=== PATIENT | female | born 1940 | race Caucasian/White ===

== ENCOUNTER 2017-12-29 22:20 | Observation (INO) ==
[2017-12-29] MEDS ORDERED: DIPH/TET/ACEL PERT BOOSTER VACCINE 0.5 ML VIAL IM ONE (22:45)
[2017-12-30] MEDS ORDERED: KETOROLAC 30 MG/1 ML VIAL IV STA (00:27)
[2017-12-30] MEDS ORDERED: ONDANSETRON 4 MG/2 ML VIAL IV PRN ×2 (00:28→10:57)
[2017-12-30] MEDS ORDERED: IBUPROFEN 400 MG TABLET PO PRN (00:28)
[2017-12-30] MEDS ORDERED: ACETAMINOPHEN 325 MG TABLET PO PRN (00:28)
[2017-12-30] MEDS ORDERED: PANTOPRAZOLE 40 MG TABLET PO SCH ×2 (07:06→07:30)
[2017-12-30 07:58] LABS: Basophils % 0.3 % (0.0-0.8); Eosinophils % 0.4 % (0.00-10.9); Hematocrit 35.4 VOL% (35.7-47.0); Hemoglobin 12.8 GM/DL (12.0-16.0); Immature Granulocytes % 0.7 %; Immature Granulocytes Absolute 0.08 #; Lymphocytes # 1.8 10*3/uL (1.4-4.0); Mean Corpuscular HGB Conc 36.2 GM/DL (32-36); Mean Corpuscular Hemoglobin 30 PG (27-34); Mean Corpuscular Volume 82.5 FL (87-102); Monocytes % 8.8 % (1.7-12.7); Neutrophils # 8.4 10*3/uL (1.4-7.4); Neutrophils % 73.8 % (38.7-73.9); Platelet Count 327 T/CUMM (130-400); Red Blood Count 4.29 MC/CUMM (3.8-5.5); Red Cell Distribution Width 12.8 % (9.3-17.3); White Blood Count 11.4 T/CUMM (4-12)
[2017-12-30 08:24] LABS: Calcium 8.7 MG/DL (8.5-10.1); Osmolality,Calculated 262.7 MOS/KG (273-304); Potassium 3.4 MMOL/L (3.5-5.1)
[2017-12-30] MEDS ORDERED: PROMETHAZINE 25 MG/1 ML VIAL IM PRN (10:56)
[2017-12-30] MEDS ORDERED: MAGNESIUM SULF RIDER 4 GM in PREMIX 1 EACH IV PRN (13:05)
[2017-12-30] MEDS ORDERED: MAGNESIUM SULF RIDER 2 GM in PREMIX 1 EACH IV PRN (13:05)
[2017-12-30] MEDS: POTASSIUM CHLORIDE RIDER 10 MEQ in PREMIX 1 EACH IV PRN ×3 (19:24→23:15)
[2017-12-31 07:25] LABS: Calcium 7.9 MG/DL (8.5-10.1); Osmolality,Calculated 265.2 MOS/KG (273-304); Potassium 3.4 MMOL/L (3.5-5.1)
[2017-12-31] MEDS ORDERED: PANTOPRAZOLE 40 MG TABLET PO SCH (07:30)
[2017-12-31] MEDS ORDERED: POTASSIUM CHLORIDE 20 MEQ TABLET PO ONE (09:34)
[2017-12-31 12:43] VITALS: BP 164/87
== END 2017-12-31 15:50 | disposition home or self-care (01) ==
LOC: EDBD → EDUNIT# → N.EDINP 22:20 → N.ED 22:20 → N.3E 12-30 01:13
PROVIDERS: ADMIT Surgery; ATTEND Surgery

== ENCOUNTER 2021-01-14 01:54 | Inpatient (IN) ==
[2021-01-14] MEDS ORDERED: ONDANSETRON 4 MG/2 ML VIAL IV STA (02:34)
[2021-01-14] MEDS ORDERED: SODIUM CHLORIDE 0.9% 1,000 ML IV STA (02:34)
[2021-01-14 02:43] LABS: Basophils # 0.1 10*3/uL (0.0-0.2); Basophils % 0.4 % (0.0-0.8); Eosinophils % 0.1 % (0.00-10.9); Hematocrit 35.4 VOL% (35.7-47.0); Hemoglobin 11.6 GM/DL (12.0-16.0); Immature Granulocytes % 0.5 %; Immature Granulocytes Absolute 0.07 #; Lymphocytes # 0.6 10*3/uL (1.4-4.0); Lymphocytes % 4.6 % (21.3-54.2); Mean Corpuscular HGB Conc 32.8 GM/DL (32-36); Mean Corpuscular Volume 88.9 FL (87-102); Monocytes % 10.5 % (1.7-12.7); Neutrophils % 83.9 % (38.7-73.9); Platelet Count 248 T/CUMM (130-400); Red Blood Count 3.98 MC/CUMM (3.8-5.5); Red Cell Distribution Width 13.8 % (9.3-17.3); White Blood Count 13.5 T/CUMM (4-12)
[2021-01-14 03:00] LABS: Albumin 2.7 G/DL (3.4-5.0); Bilirubin,Total 0.9 MG/DL (0.2-1.0); Calcium 8.1 MG/DL (8.5-10.1); Osmolality,Calculated 262.7 MOS/KG (273-304); Potassium 3.2 MMOL/L (3.5-5.1); Total Protein 6.8 G/DL (6.4-8.2)
[2021-01-14 03:15] LABS: Lymphocytes 5 % (20-55); Segmented Neutrophils 86 % (50-85); Total Cells Counted 100
[2021-01-14 03:18] LABS: Platelet Estimate Normal
[2021-01-14 04:24] LABS: Bacteria,Urine Moderate /HPF (Few); Bilirubin,Urine Negative (Negative); Blood, Urine Moderate mg/dL (Negative); Glucose,Urine (UA) Negative (Negative); Ketones,Urine 20 mg/dL (Negative); Mucus,Urine Occasional /LPF (Occasional); Nitrite,Urine Positive (Negative); Protein,Urine Negative; RBC,Urine 7 /HPF (0-4); Urine Appearance Slightly Hazy (Clear); Urine Color Amber (Yellow); Urine Specific Gravity 1.016 (1.001-1.035)
[2021-01-14] MEDS ORDERED: cefTRIAXone 1,000 MG in SODIUM CHLORIDE 0.9% 100 ML IV STA (04:31)
[2021-01-14] MEDS ORDERED: METOPROLOL TARTRATE 5 MG/5 ML VIAL IV STA (04:34)
[2021-01-14] MEDS ORDERED: ENOXAPARIN 30 MG/0.3 ML SYRINGE SUBCUT STA (04:36)
[2021-01-14] MEDS ORDERED: ENOXAPARIN 100 MG/ML SYRINGE SUBCUT ONE (04:43)
[2021-01-14] MEDS ORDERED: hydrALAZINE 20 MG/1 ML VIAL IV PRN (05:27)
[2021-01-14] MEDS ORDERED: DEXTROSE 50% 25 GM/50 ML VIAL IV PRN (05:27)
[2021-01-14] MEDS ORDERED: GLUCAGON 1 MG VIAL IM PRN (05:27)
[2021-01-14] MEDS ORDERED: NICOTINE 21 MG/24 HR PATCH TRANSDERM PRN (05:27)
[2021-01-14] MEDS ORDERED: ONDANSETRON 4 MG/2 ML VIAL IV PRN (05:27)
[2021-01-14] MEDS ORDERED: guaiFENesin/DM ER 600-30 MG TABLET PO PRN (05:27)
[2021-01-14] MEDS ORDERED: diphenhydrAMINE CAP 25 MG CAPSULE PO PRN (05:27)
[2021-01-14] MEDS ORDERED: FAMOTIDINE 20 MG/2 ML VIAL IV SCH ×2 (07:00→21:00)
[2021-01-14] MEDS: ALBUTEROL/IPRATROPIUM 3 ML NEB RESP TX SCH ×3 (07:58→18:54)
[2021-01-14] MEDS: INSULIN REGULAR 100 UNIT/ML SUBCUT SCH ×4 (08:32→21:13)
[2021-01-14] MEDS: APIXABAN 5 MG TABLET PO SCH ×2 (08:44→21:13)
[2021-01-14] MEDS: AMIODARONE 200 MG TABLET PO SCH (08:44)
[2021-01-14] MEDS: FUROSEMIDE 40 MG TABLET PO SCH ×2 (08:44→21:13)
[2021-01-14] MEDS: POTASSIUM CHLORIDE 10 MEQ TABLET PO SCH ×2 (08:44→21:13)
[2021-01-14] MEDS: LEVOTHYROXINE 112 MCG TABLET PO SCH (08:44)
[2021-01-14] MEDS: PANTOPRAZOLE 40 MG VIAL IV SCH (08:45)
[2021-01-14] MEDS ORDERED: LOSARTAN 50 MG TABLET PO SCH (09:00)
[2021-01-14] MEDS ORDERED: POTASSIUM CHLORIDE 20 MEQ TABLET PO PRN (10:30)
[2021-01-14] MEDS ORDERED: POLYETHYLENE GLYCOL POWDER 17 GM PACK PO PRN (10:31)
[2021-01-14] MEDS: ACETAMINOPHEN 325 MG TABLET PO PRN (12:37)
[2021-01-14] MEDS: predniSONE 20 MG TABLET PO SCH (14:39)
[2021-01-14] MEDS: DOXYCYCLINE HYCLATE 100 MG CAPSULE PO SCH (14:39)
[2021-01-15] MEDS: ALBUTEROL/IPRATROPIUM 3 ML NEB RESP TX SCH ×4 (00:30→21:00)
[2021-01-15] MEDS: cefTRIAXone 1,000 MG in SODIUM CHLORIDE 0.9% 100 ML IV SCH (06:20)
[2021-01-15] MEDS: LEVOTHYROXINE 112 MCG TABLET PO SCH (06:20)
[2021-01-15] MEDS: INSULIN REGULAR 100 UNIT/ML SUBCUT SCH ×4 (07:53→22:25)
[2021-01-15 08:40] LABS: Basophils % 0.2 % (0.0-0.8); Eosinophils % 0.1 % (0.00-10.9); Hematocrit 34.8 VOL% (35.7-47.0); Hemoglobin 11.7 GM/DL (12.0-16.0); Immature Granulocytes % 0.4 %; Immature Granulocytes Absolute 0.05 #; Lymphocytes # 0.8 10*3/uL (1.4-4.0); Lymphocytes % 6.5 % (21.3-54.2); Mean Corpuscular HGB Conc 33.6 GM/DL (32-36); Mean Corpuscular Volume 87.4 FL (87-102); Mean Platelet Volume 9.7 FL (9.6-12.0); Neutrophils % 83.8 % (38.7-73.9); Platelet Count 257 T/CUMM (130-400); Red Blood Count 3.98 MC/CUMM (3.8-5.5); Red Cell Distribution Width 13.5 % (9.3-17.3); White Blood Count 12.8 T/CUMM (4-12)
[2021-01-15 08:59] LABS: Calcium 8.1 MG/DL (8.5-10.1); Osmolality,Calculated 267.2 MOS/KG (273-304); Potassium 2.9 MMOL/L (3.5-5.1)
[2021-01-15] MEDS ORDERED: LOSARTAN 25 MG TABLET PO SCH (09:00)
[2021-01-15] MEDS: DOXYCYCLINE HYCLATE 100 MG CAPSULE PO SCH (09:13)
[2021-01-15] MEDS: FUROSEMIDE 40 MG TABLET PO SCH ×2 (09:13→22:24)
[2021-01-15] MEDS: APIXABAN 5 MG TABLET PO SCH ×2 (09:13→22:24)
[2021-01-15] MEDS: PSYLLIUM POWDER 3.7 GM/PACK PO SCH (09:13)
[2021-01-15] MEDS: AMIODARONE 200 MG TABLET PO SCH (09:13)
[2021-01-15] MEDS: POTASSIUM CHLORIDE 10 MEQ TABLET PO SCH ×2 (09:13→22:24)
[2021-01-15] MEDS: predniSONE 20 MG TABLET PO SCH (09:13)
[2021-01-15] MEDS: FAMOTIDINE 20 MG TABLET PO SCH ×2 (09:14→22:24)
[2021-01-15] MEDS: PANTOPRAZOLE 40 MG VIAL IV SCH (09:14)
[2021-01-15] MEDS ORDERED: ALPRAZolam 0.25 MG TABLET PO PRN (09:40)
[2021-01-15] MEDS: ACETAMINOPHEN 325 MG TABLET PO PRN (11:33)
[2021-01-15] MEDS ORDERED: POTASSIUM CHLORIDE 20 MEQ TABLET PO ONE (13:27)
[2021-01-16] MEDS: ALBUTEROL/IPRATROPIUM 3 ML NEB RESP TX SCH ×4 (03:19→19:13)
[2021-01-16 05:49] LABS: Basophils % 0.1 % (0.0-0.8); Eosinophils % 0.1 % (0.00-10.9); Hematocrit 32.3 VOL% (35.7-47.0); Immature Granulocytes % 0.9 %; Immature Granulocytes Absolute 0.11 #; Lymphocytes # 0.7 10*3/uL (1.4-4.0); Lymphocytes % 5.7 % (21.3-54.2); Mean Corpuscular HGB Conc 34.1 GM/DL (32-36); Mean Corpuscular Volume 87.3 FL (87-102); Mean Platelet Volume 10.2 FL (9.6-12.0); Monocytes % 11.1 % (1.7-12.7); Neutrophils % 82.1 % (38.7-73.9); Platelet Count 275 T/CUMM (130-400); Red Cell Distribution Width 13.2 % (9.3-17.3); White Blood Count 12.6 T/CUMM (4-12)
[2021-01-16 06:05] LABS: Calcium 8.4 MG/DL (8.5-10.1); Osmolality,Calculated 268.1 MOS/KG (273-304); Potassium 3.3 MMOL/L (3.5-5.1)
[2021-01-16] MEDS: cefTRIAXone 1,000 MG in SODIUM CHLORIDE 0.9% 100 ML IV SCH (06:15)
[2021-01-16] MEDS: LEVOTHYROXINE 112 MCG TABLET PO SCH (06:15)
[2021-01-16] MEDS ORDERED: POTASSIUM CHLORIDE 20 MEQ TABLET PO ONE (08:17)
[2021-01-16] MEDS ORDERED: SIMVASTATIN 40 MG TABLET PO SCH (09:00)
[2021-01-16] MEDS: INSULIN REGULAR 100 UNIT/ML SUBCUT SCH ×5 (09:56→22:23)
[2021-01-16] MEDS: FAMOTIDINE 20 MG TABLET PO SCH ×2 (09:57→22:22)
[2021-01-16] MEDS: LOSARTAN 50 MG TABLET PO SCH (09:58)
[2021-01-16] MEDS: AMIODARONE 200 MG TABLET PO SCH (09:58)
[2021-01-16] MEDS: POTASSIUM CHLORIDE 10 MEQ TABLET PO SCH ×2 (09:58→22:25)
[2021-01-16] MEDS: DOXYCYCLINE HYCLATE 100 MG CAPSULE PO SCH (09:58)
[2021-01-16] MEDS: predniSONE 20 MG TABLET PO SCH (09:59)
[2021-01-16] MEDS: APIXABAN 5 MG TABLET PO SCH ×2 (09:59→22:22)
[2021-01-16] MEDS: PSYLLIUM POWDER 3.7 GM/PACK PO SCH (10:00)
[2021-01-16] MEDS: PANTOPRAZOLE 40 MG VIAL IV SCH (10:02)
[2021-01-16] MEDS: FUROSEMIDE 40 MG TABLET PO SCH ×2 (10:46→22:22)
[2021-01-16] MEDS: ASCORBIC ACID 500 MG TABLET PO SCH (22:22)
[2021-01-17] MEDS: ALBUTEROL/IPRATROPIUM 3 ML NEB RESP TX SCH ×3 (00:53→12:46)
[2021-01-17] MEDS: cefTRIAXone 1,000 MG in SODIUM CHLORIDE 0.9% 100 ML IV SCH (04:34)
[2021-01-17 05:55] LABS: Basophils % 0.1 % (0.0-0.8); Eosinophils % 0.1 % (0.00-10.9); Hematocrit 33.4 VOL% (35.7-47.0); Hemoglobin 10.8 GM/DL (12.0-16.0); Immature Granulocytes % 0.6 %; Immature Granulocytes Absolute 0.06 #; Lymphocytes # 0.7 10*3/uL (1.4-4.0); Lymphocytes % 6.7 % (21.3-54.2); Mean Corpuscular HGB Conc 32.3 GM/DL (32-36); Mean Corpuscular Volume 89.3 FL (87-102); Mean Platelet Volume 9.9 FL (9.6-12.0); Monocytes % 11.7 % (1.7-12.7); Neutrophils % 80.8 % (38.7-73.9); Platelet Count 309 T/CUMM (130-400); Red Blood Count 3.74 MC/CUMM (3.8-5.5); Red Cell Distribution Width 13.5 % (9.3-17.3); White Blood Count 10.7 T/CUMM (4-12)
[2021-01-17 06:23] LABS: Hypochromasia 1+; Microcytosis 1+; Platelet Estimate Adequate
[2021-01-17 06:33] LABS: Calcium 8.4 MG/DL (8.5-10.1); Osmolality,Calculated 276.5 MOS/KG (273-304); Potassium 3.4 MMOL/L (3.5-5.1)
[2021-01-17] MEDS: LEVOTHYROXINE 112 MCG TABLET PO SCH (06:44)
[2021-01-17] MEDS ORDERED: POTASSIUM CHLORIDE 20 MEQ TABLET PO ONE (08:14)
[2021-01-17] MEDS: POTASSIUM CHLORIDE 10 MEQ TABLET PO SCH (09:44)
[2021-01-17] MEDS: PANTOPRAZOLE 40 MG VIAL IV SCH (09:44)
[2021-01-17] MEDS: LOSARTAN 50 MG TABLET PO SCH (09:45)
[2021-01-17] MEDS: FAMOTIDINE 20 MG TABLET PO SCH (09:47)
[2021-01-17] MEDS: ASCORBIC ACID 500 MG TABLET PO SCH (09:47)
[2021-01-17] MEDS: AMIODARONE 200 MG TABLET PO SCH (09:47)
[2021-01-17] MEDS: PSYLLIUM POWDER 3.7 GM/PACK PO SCH (09:48)
[2021-01-17] MEDS: FUROSEMIDE 40 MG TABLET PO SCH (09:48)
[2021-01-17] MEDS: DOXYCYCLINE HYCLATE 100 MG CAPSULE PO SCH (09:48)
[2021-01-17] MEDS: APIXABAN 5 MG TABLET PO SCH (09:48)
[2021-01-17] MEDS: INSULIN REGULAR 100 UNIT/ML SUBCUT SCH (09:49)
[2021-01-17] MEDS: predniSONE 20 MG TABLET PO SCH (10:29)
[2021-01-17 12:26] VITALS: BP 181/62
== END 2021-01-17 14:50 | disposition home health service (06) | DRG 194 ==
LOC: EDBD → EDUNIT# → N.EDINP 01:54 → N.ED 01:54 → SUATTDRO 05:27 → N.TELEN 05:43
PROVIDERS: ADMIT Emergency Medicine; ATTEND Internal Medicine